=== PATIENT | male | born 1960 | race Caucasian/White ===

== ENCOUNTER 2016-09-03 10:14 | Emergency (ER) | payer BC ==
[~2016-09-03] VITALS: Ht 182.9 cm; Wt 102.1 kg
[2016-09-03 10:46] VITALS: BP 140/87
[2016-09-03] MEDS ORDERED: IPRATROPIUM BROM 0.5 MG/2.5ML INH SOL NEB ONE (11:00)
[2016-09-03] MEDS ORDERED: ALBUTEROL SULF 2.5 MG/0.5ML(0.5%) NEB SOLN NEB ONE (11:00)
[2016-09-03] MEDS ORDERED: methylPREDNISolone SOD SUCC 125 MG/2 ML VL IM ONE (11:00)
[2016-09-03] MEDS ORDERED: cefTRIAXone SOD 1,000 MG VL IM ONE (11:00)
== END 2016-09-03 11:41 | disposition home or self-care (01) ==
LOC: ER 10:14
DX: J20.9 Acute bronchitis, unspecified (principal); I10 Essential (primary) hypertension; I25.2 Old myocardial infarction
CPT/HCPCS: 94640; 96372; 99283; J0696

== ENCOUNTER 2016-10-01 16:33 | Inpatient (IN) | payer BC ==
[~2016-10-01] VITALS: Ht 182.9 cm; Wt 102.8 kg
[2016-10-01 17:27] LABS: Basophils # (auto) 0 uL; Basophils % (auto) 0.4 % (0.0-2.0); Eosinophils # (auto) 0.3 uL; Eosinophils % (auto) 3.4 % (0.0-7.0); Hematocrit 42.2 % (41.0-53.0); Lymphocytes # (auto) 2.6 uL; Lymphocytes % (auto) 33.8 % (10.0-50.0); Mean Corpuscular Hemoglobin 28.5 pg (28.0-32.0); Mean Corpuscular Volume 86.2 fL (80.0-100.0); Mean Platelet Volume 7.6 fL (7.4-10.4); Monocytes # (auto) 0.8 uL; Neutrophils # (auto) 3.9 uL; Neutrophils % (auto) 51.4 % (37.0-80.0); Platelet Count (auto) 303 10^3/uL (140-450); White Blood Cell 7.6 10^3/uL (4.4-10.8)
[2016-10-01 17:43] LABS: Anion Gap 9 (5-15); Blood Urea Nitrogen 24 mg/dL (7-18); Calcium 9.4 mg/dL (8.5-10.1); Carbon Dioxide 26 mmol/L (21-32); Chloride 108 mmol/L (98-107); Glucose 88 mg/dL (74-106); Potassium 4.3 mmol/L (3.5-5.1); Sodium 143 mmol/L (136-145)
[2016-10-01 17:45] LABS: Aspartate Aminotransferase 18 U/L (15-37); GFR African American 72 mL/min; GFR Non-African American 60 mL/min
[2016-10-01 17:50] LABS: Alkaline Phosphatase 59 U/L (45-117); Bilirubin, Total 0.3 mg/dL (0.2-1.0); Total Protein 7.5 g/dL (6.4-8.2)
[2016-10-01] MEDS ORDERED: ATOR40TA52 PO (18:17)
[2016-10-01] MEDS ORDERED: PANT40TA2 PO (18:17)
[2016-10-01] MEDS ORDERED: MONT5CHW17 PO (18:17)
[2016-10-01] MEDS ORDERED: CAR125T PO (18:17)
[2016-10-01] MEDS ORDERED: LISI-275 PO (18:19)
[2016-10-01] MEDS ORDERED: NITR0.4S29 SL (18:19)
[2016-10-01] MEDS ORDERED: FENO160T8 PO (18:20)
[2016-10-01] MEDS ORDERED: TICA90TA PO (18:20)
[2016-10-01] MEDS ORDERED: ASPI81TA27 PO (18:21)
[2016-10-01] MEDS ORDERED: MULTTAB99 PO (18:21)
[2016-10-01] MEDS ORDERED: HYDROcodone-ACET 5/325MG TAB PO PRN (20:45)
[2016-10-01] MEDS ORDERED: ACETAMINOPHEN 325 MG TAB PO PRN (20:45)
[2016-10-01] MEDS ORDERED: ONDANSETRON HCL 4 MG/2 ML VIAL IV PRN (20:45)
[2016-10-01] MEDS: TICAGRELOR 90 MG TAB PO SCH (21:48)
[2016-10-01] MEDS: CARVEDILOL 12.5 MG TAB PO SCH (21:49)
[2016-10-01] MEDS: FAMOTIDINE 20 MG TAB PO SCH (21:50)
[2016-10-01 22:00] VITALS: BP 141/95
[2016-10-01] MEDS ORDERED: ATORVASTATIN 20 MG TAB PO SCH (22:00)
[2016-10-01 23:16] VITALS: BP 141/95
[2016-10-02 05:00] VITALS: BP 136/88
[2016-10-02 06:26] LABS: Albumin 3.9 g/dL (3.4-5.0); Anion Gap 8 (5-15); Aspartate Aminotransferase 20 U/L (15-37); BUN/Creatinine Ratio 18.2; Blood Urea Nitrogen 24 mg/dL (7-18); Calcium 8.8 mg/dL (8.5-10.1); Carbon Dioxide 26 mmol/L (21-32); Chloride 108 mmol/L (98-107); GFR African American 73 mL/min; GFR Non-African American 60 mL/min; Glucose 82 mg/dL (74-106); Potassium 4.2 mmol/L (3.5-5.1); Sodium 142 mmol/L (136-145)
[2016-10-02 06:28] LABS: Basophils # (auto) 0 uL; Basophils % (auto) 0.5 % (0.0-2.0); Eosinophils # (auto) 0.2 uL; Eosinophils % (auto) 3.1 % (0.0-7.0); Hematocrit 43.5 % (41.0-53.0); Hemoglobin 14.4 g/dL (13.5-17.5); Lymphocytes # (auto) 2.5 uL; Lymphocytes % (auto) 35.4 % (10.0-50.0); Mean Corpuscular Hemoglobin 28.6 pg (28.0-32.0); Mean Corpuscular Hgb Conc. 33.1 g/dL (32.0-36.0); Mean Corpuscular Volume 86.4 fL (80.0-100.0); Monocytes # (auto) 0.8 uL; Monocytes % (auto) 11.8 % (0.0-12.0); Neutrophils # (auto) 3.4 uL; Neutrophils % (auto) 49.2 % (37.0-80.0); Platelet Count (auto) 277 10^3/uL (140-450); Red Cell Distribution Width 13.8 % (11.6-16.0)
[2016-10-02 06:31] LABS: Alkaline Phosphatase 52 U/L (45-117); Bilirubin, Total 0.5 mg/dL (0.2-1.0); Total Protein 7.1 g/dL (6.4-8.2)
[2016-10-02 08:00] VITALS: BP 150/95
[2016-10-02 09:00] VITALS: BP 150/95
[2016-10-02] MEDS ORDERED: NITROGLYCERIN 0.4 MG SL TAB SL SCH (09:15)
[2016-10-02] MEDS: FAMOTIDINE 20 MG TAB PO SCH (09:51)
[2016-10-02] MEDS: CARVEDILOL 12.5 MG TAB PO SCH ×2 (09:52→22:00)
[2016-10-02] MEDS: TICAGRELOR 90 MG TAB PO SCH ×2 (09:53→22:26)
[2016-10-02] MEDS ORDERED: ENOXAPARIN SOD 40 MG/0.4 ML SYRINGE SC SCH ×2 (10:00→15:00)
[2016-10-02] MEDS ORDERED: PANTOPRAZOLE 40 MG TAB PO SCH (10:00)
[2016-10-02] MEDS ORDERED: ASPirin-EC 81 mg tab PO SCH (10:00)
[2016-10-02] MEDS ORDERED: ASPirin 81 mg TAB PO SCH (10:00)
[2016-10-02] MEDS ORDERED: CARVEDILOL 12.5 MG TAB PO SCH (10:00)
[2016-10-02] MEDS ORDERED: LISINOPRIL 5 MG TAB PO SCH ×2 (10:00)
[2016-10-02] MEDS: MULTIPLE VITAMIN TAB PO SCH (10:00)
[2016-10-02] MEDS ORDERED: TICAGRELOR 90 MG TAB PO SCH ×2 (10:00)
[2016-10-02] MEDS ORDERED: SODIUM CHLORIDE 0.9% 1,000 ML IV SCH (10:30)
[2016-10-02] MEDS ORDERED: PANTOPRAZOLE 40 MG TAB PO ONE ×2 (11:15→14:15)
[2016-10-02 13:00] VITALS: BP 145/92
[2016-10-02] MEDS ORDERED: MULTIPLE VITAMIN TAB PO ONE (14:15)
[2016-10-02] MEDS: ASPirin-EC 81 mg tab PO SCH (14:15)
[2016-10-02] MEDS ORDERED: LISINOPRIL 5 MG TAB PO ONE (14:15)
[2016-10-02] MEDS ORDERED: MONTELUKAST SODIUM 10 MG TAB PO ONE (14:15)
[2016-10-02] MEDS ORDERED: TICAGRELOR 90 MG TAB PO ONE (14:30)
[2016-10-02 17:00] VITALS: BP 149/92
[2016-10-02 20:02] LABS: Urine Bilirubin Negative (Negative); Urine Blood Negative /uL (Negative); Urine Color Yellow (Yellow); Urine Glucose Normal (Normal); Urine Ketone Negative (Negative); Urine Nitrite Negative (Negative); Urine RBC 1 /hpf (0 - 3); Urine Urobilinogen Normal (Negative); Urine pH 6.5 (5.0-8.0)
[2016-10-02 22:00] VITALS: BP 132/80
[2016-10-02] MEDS ORDERED: FENOFIBRATE 145 MG PO SCH (22:00)
[2016-10-02] MEDS ORDERED: ATORVASTATIN 20 MG TAB PO SCH (22:00)
[2016-10-03 05:42] VITALS: BP 133/84
[2016-10-03 06:57] LABS: Calcium 9.2 mg/dL (8.5-10.1); Potassium 4.2 mmol/L (3.5-5.1)
[2016-10-03 07:10] LABS: BUN/Creatinine Ratio 17.7
[2016-10-03] MEDS ORDERED: LIDOCAINE 2%HCL (LOCAL ANESTH.) INJ 20ML MDV ONE (07:15)
[2016-10-03] MEDS ORDERED: HEPARIN IN NS 1000Units/500mL 0 ML ONE (07:15)
[2016-10-03 07:30] VITALS: BP 149/86
[2016-10-03 08:00] VITALS: BP 149/86
[2016-10-03] MEDS ORDERED: ADENOSINE 86 MG in GIVE UN-DILUTED 0 ML IV STA (08:03)
[2016-10-03] MEDS ORDERED: MONTELUKAST SODIUM 10 MG TAB PO SCH (10:00)
[2016-10-03] MEDS ORDERED: PANTOPRAZOLE 40 MG TAB PO SCH (10:00)
[2016-10-03] MEDS ORDERED: SODIUM CHLORIDE 0.9% 1,000 ML IV SCH (10:30)
[2016-10-03] MEDS: ASPirin-EC 81 mg tab PO SCH (12:13)
[2016-10-03] MEDS: TICAGRELOR 90 MG TAB PO SCH (12:13)
[2016-10-03] MEDS: MULTIPLE VITAMIN TAB PO SCH (12:13)
[2016-10-03] MEDS: CARVEDILOL 12.5 MG TAB PO SCH (12:14)
[2016-10-03 12:16] VITALS: BP 125/87
[2016-10-03 16:28] VITALS: BP_SYST 119
[2016-10-03 18:30] VITALS: BP 119/73
[2016-10-03] MEDS ORDERED: LISINOPRIL 5 MG TAB PO SCH (22:00)
== END 2016-10-03 19:10 | disposition home or self-care (01) | DRG 303 ==
LOC: ER 16:33 → TELE 16:34 → SUATTDRO 19:16 → TELE-CENTR 20:39
PROVIDERS: ADMIT Nurse Practitioner Acute Care; ATTEND Internal Medicine
DX: I25.110 Atherosclerotic heart disease of native coronary artery with unstable angina pectoris (principal); N17.9 Acute kidney failure, unspecified; E78.5 Hyperlipidemia, unspecified; I12.9 Hypertensive chronic kidney disease with stage 1 through stage 4 chronic kidney disease, or unspecified chronic kidney disease; K21.9 Gastro-esophageal reflux disease without esophagitis; Z79.899 Other long term (current) drug therapy; Z82.49 Family history of ischemic heart disease and other diseases of the circulatory system; Z83.3 Family history of diabetes mellitus; Z95.5 Presence of coronary angioplasty implant and graft; I25.2 Old myocardial infarction; E66.9 Obesity, unspecified; Z68.30 Body mass index [BMI] 30.0-30.9, adult; N18.3 Chronic kidney disease, stage 3 (moderate)
CPT/HCPCS: 36415; 71020; 78452; 80048; 80053; 81001; 83735; 84484; 85025; 93005; 93017; 93306; 94761; J0153